=== PATIENT | male | born 1995 | race Caucasian/White ===

== ENCOUNTER 2022-06-12 18:39 | Emergency (ER) | payer BC, OTHER ==
[~2022-06-12] VITALS: Ht 172.7 cm; Wt 96.1 kg
[~2022-06-12 18:39] MED LIST: No medications
[2022-06-12 20:34] LABS: BASO % 0.5 % (0.0-1.0); EOS # 0.1 10^3/uL (0.0-0.5); HEMATOCRIT 43.2 % (42.0-52.0); HEMOGLOBIN 15.6 g/dl (13.5-17.5); LYMPH # 2.3 10^3/uL (1.5-5.0); LYMPH % 30.4 % (24.0-44.0); MEAN CORPUSCULAR HEMOGLOBIN 29.8 pg (27.0-33.0); MEAN CORPUSCULAR HGB CONC 36.1 g/dl (32.0-36.5); MEAN CORPUSCULAR VOLUME 82.6 fl (80.0-96.0); MONO # 0.5 10^3/uL (0.0-0.8); MONO % 7.1 % (2.0-8.0); NEUTROPHILS # 4.6 10^3/uL (1.5-8.5); NEUTROPHILS % 60.9 % (36.0-66.0); PLATELET COUNT, AUTOMATED 207 10^3/uL (150-450); RED BLOOD COUNT 5.23 10^6/uL (4.30-6.10); WHITE BLOOD COUNT 7.6 10^3/uL (4.0-10.0)
[2022-06-12 20:51] VITALS: BP 117/60
[2022-06-12 21:04] LABS: SALICYLATE LEVEL < 3.0 MG/DL (<30)
[2022-06-12 21:05] LABS: ACETAMINOPHEN LEVEL < 2.0 UG/ML (10.0-20.0); ALBUMIN 4.4 G/DL (3.2-5.2); ALKALINE PHOSPHATASE 58 U/L (46-116); ALT/SGPT 15 U/L (7.0-40); AST/SGOT 16 U/L (<34); BILIRUBIN,DIRECT 0.3 MG/DL (<0.4); BILIRUBIN,TOTAL 0.7 MG/DL (0.3-1.2); BLOOD UREA NITROGEN 14 MG/DL (9-23); CALCIUM LEVEL 9.3 MG/DL (8.5-10.1); CARBON DIOXIDE LEVEL 28 MMOL/L (20-31); CHLORIDE LEVEL 105 MMOL/L (98-107); CREATININE FOR GFR 1.12 MG/DL (0.70-1.30); GLOMERULAR FILTRATION RATE > 60.0 (>60); GLUCOSE, FASTING 87 MG/DL (60-100); POTASSIUM SERUM 3.9 MMOL/L (3.5-5.1); SODIUM LEVEL 142 MMOL/L (136-145); TOTAL PROTEIN 7.3 G/DL (5.7-8.2)
[2022-06-12 21:07] LABS: THYROID STIMULATING HORMONE 1.389 uIU/ML (0.55-4.78)
== END 2022-06-12 21:14 | disposition home or self-care (01) ==
LOC: M ED 18:39
DX: H53.9 Unspecified visual disturbance (principal); Z88.1 Allergy status to other antibiotic agents

== ENCOUNTER 2024-12-25 13:52 | Observation (INO) | payer BC, OTHER ==
[~2024-12-25] VITALS: Ht 172.7 cm; Wt 75.2 kg
[2024-12-25 14:43] LABS: BASO # 0.1 10^3/uL (0.0-0.2); BASO % 0.8 % (0.0-1.0); EOS # 0.2 10^3/uL (0.0-0.5); EOS % 2.3 % (0.0-3.0); LYMPH # 1.7 10^3/uL (1.5-5.0); LYMPH % 25.7 % (24.0-44.0); MONO # 0.7 10^3/uL (0.0-0.8); MONO % 10.0 % (2.0-8.0); NEUTROPHILS # 4.0 10^3/uL (1.5-8.5); NEUTROPHILS % 61.0 % (36.0-66.0); PLATELET COUNT, AUTOMATED 209 10^3/uL (150-450)
[2024-12-25 14:49] LABS: ERYTHROCYTE SEDIMENTATION RATE 10 mm/hr (0-15)
[2024-12-25] MEDS ORDERED: ISOVUE-370 76% 100 ML VIAL As Ordered ONE (14:58)
[2024-12-25 15:10] LABS: ALT/SGPT 16.0 U/L (7.0-40); AST/SGOT 14.0 U/L (<34); C REACTIVE PROTEIN QUANTITATIV 3.24 MG/DL (<1.0)
[2024-12-25] MEDS: PIPERACILLIN/TAZOBACTAM SOD 3.375 GM in DEXTROSE 5% (D5W) ADV/MINI-BAG 50 ML IV ONE (16:52)
[2024-12-25] MEDS: NS (Normal Saline) 0.9% 1,000 ML IV SCH (16:52)
[2024-12-25] MEDS ORDERED: LORA-930 PO (16:57)
[2024-12-25] MEDS ORDERED: HOME MED LIST COMPLETE! XX SCH (17:00)
[2024-12-25 17:33] LABS: CALCIUM LEVEL 9.3 MG/DL (8.5-10.1); CARBON DIOXIDE LEVEL 28.0 MMOL/L (20-31); CHLORIDE LEVEL 105.0 MMOL/L (98-107); CREATININE FOR GFR 1.2 MG/DL (0.70-1.30); GLOMERULAR FILTRATION RATE 85.0 (>60); POTASSIUM SERUM 4.0 MMOL/L (3.5-5.1); SODIUM LEVEL 143.0 MMOL/L (136-145)
[2024-12-25] MEDS ORDERED: ACETAMINOPHEN 325 MG TAB PO PRN (17:50)
[2024-12-25 20:00] VITALS: BP 117/63; TEMP 97.9; O2SAT 100
[2024-12-26] VITALS (9 sets, daily range): BP systolic 102–125; BP diastolic 54–67; TEMP 97.4–98.4; O2SAT 95–97
[2024-12-26] MEDS ORDERED: MIDAZOLAM INJ 2 MG/2 ML VIAL As Ordered ONE (06:04)
[2024-12-26] MEDS ORDERED: ONDANSETRON 4MG 2ML VIAL As Ordered ONE (06:05)
[2024-12-26] MEDS ORDERED: ROCURONIUM BROMIDE 50MG/5ML VIAL As Ordered ONE (06:05)
[2024-12-26] MEDS ORDERED: ACETAMINOPHEN 1000MG/100ML IV BAG As Ordered ONE (06:05)
[2024-12-26] MEDS ORDERED: dexAMETHasone 4 MG/ML 1 ML VIAL As Ordered ONE (06:05)
[2024-12-26] MEDS ORDERED: dexmedeTOMIDine (4 MCG/ML) 200 MCG/50 ML BTL As Ordered ONE (06:05)
[2024-12-26] MEDS ORDERED: LIDOCAINE 2% 100 MG/5 ML SDV (FOR ANES.) As Ordered ONE (06:05)
[2024-12-26] MEDS ORDERED: SUGAMMADEX SODIUM 500 MG/5 ML VIAL As Ordered ONE (06:05)
[2024-12-26] MEDS ORDERED: KETOROLAC 30 MG/ML 1 ML VIAL As Ordered ONE (06:15)
[2024-12-26] MEDS: ZOSYN 3.375GM VIAL As Ordered ONE (07:29)
[2024-12-26] MEDS ORDERED: SUGAMMADEX SODIUM 200 MG/2 ML VIAL As Ordered ONE (07:39)
[2024-12-26] MEDS ORDERED: LR 1,000 ML IV SCH (07:45)
[2024-12-26] MEDS ORDERED: HYDROMORPHONE HCL 0.5 MG/0.5 ML SYRINGE IV PRN (07:45)
[2024-12-26] MEDS ORDERED: ONDANSETRON 4MG 2ML VIAL IV PRN (07:45)
[2024-12-26] MEDS ORDERED: ACET-841 PO (14:09)
[2024-12-26] MEDS ORDERED: OXYC-517 PO (14:09)
== END 2024-12-26 15:55 | disposition home or self-care (01) ==
LOC: M ED 14:33 → M ED INP 14:34 → M PED 19:58
PROVIDERS: ADMIT Student in an Organized Health Care Education/Training Program; ATTEND Student in an Organized Health Care Education/Training Program
DX: K35.80 Unspecified acute appendicitis (principal); Z80.8 Family history of malignant neoplasm of other organs or systems; Z82.49 Family history of ischemic heart disease and other diseases of the circulatory system; Z83.79 Family history of other diseases of the digestive system; Z88.1 Allergy status to other antibiotic agents; Z91.018 Allergy to other foods
CPT/HCPCS: 44970; 74177; 80047; 80048; 80076; 83605; 83690; 85025; 85652; 86140; 88304; 93005; 96365; 99284; J0131; J0665; J1100; J1885; J2250; J2405; J2543; J3010; Q9967; S2900

== ENCOUNTER → 2025-01-03 | Outpatient (CLI) | payer BC ==
[~2025-01-03] MED LIST changes: +ACET-841 PO; +LORA-930 PO; +OXYC-517 PO
[2025-01-03 19:08] LABS: BASO # 0.1 10^3/uL (0.0-0.2); BASO % 0.9 % (0.0-1.0); EOS # 0.1 10^3/uL (0.0-0.5); EOS % 1.9 % (0.0-3.0); LYMPH # 1.9 10^3/uL (1.5-5.0); LYMPH % 28.1 % (24.0-44.0); MONO # 0.6 10^3/uL (0.0-0.8); MONO % 8.0 % (2.0-8.0); NEUTROPHILS # 4.2 10^3/uL (1.5-8.5); NEUTROPHILS % 60.8 % (36.0-66.0); PLATELET COUNT, AUTOMATED 239 10^3/uL (150-450)
== END ==
LOC: M PLALAB 16:18
PROVIDERS: ATTEND Student in an Organized Health Care Education/Training Program
DX: K92.1 Melena (principal)